=== PATIENT | female | born 1980 | race Caucasian/White ===

== ENCOUNTER 2017-05-17 18:44 | Emergency (ER) | payer SELFPAY ==
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
== END 2017-05-17 19:53 | disposition home or self-care (01) ==
LOC: MW.ED 18:44
DX: M62.830 Muscle spasm of back (principal); E20.9 Hypoparathyroidism, unspecified; Z79.899 Other long term (current) drug therapy
CPT/HCPCS: 99283

== ENCOUNTER 2018-04-22 16:59 | Emergency (ER) | payer OTHER ==
--- NOTE | 2018-04-22 17:53 | EDM.PDOC ---
ED HPI GENERAL MEDICAL PROBLEM - General Chief Complaint: ENT Problem Stated Complaint: POSSIBLE THRUSH/RASH Time Seen by Provider: 04/22/18 17:49 Source of Information: Reports: Patient History Limitations: Reports: No Limitations - History of Present Illness INITIAL COMMENTS - FREE TEXT/NARRATIVE: HISTORY AND PHYSICAL: History of present illness: Patient is a 29-year-old female here with complaint of yeast infection. She states she has had white vaginal discharge and itching and treated herself with [id number] oral medication. She states that this has not improved and now she thinks she has a yeast infection in her mouth as well. Her tongue is yellow and painful. She is also complaining of a rash on her left upper arm that started yesterday. She states it is itchy, not painful. She did recently receive a tattoo on the arm and use some goats milk cream on it which has never used recently. She denies fevers, chills, cough, congestion, nausea, vomiting, diarrhea. Review of systems: As per history of present illness and below otherwise all systems reviewed and negative. Past medical history: As per history of present illness and as reviewed below otherwise noncontributory. Surgical history: As per history of present illness and as reviewed below otherwise noncontributory. Social history: No reported history of drug or alcohol abuse. Family history: As per history of present illness and as reviewed below otherwise noncontributory. Physical exam: General: Patient sitting comfortably in no acute distress and nontoxic appearing HEENT: Tongue is with a whitish/yellow coating. Tonsils and soft palate are erythematous with some exudate noted. Atraumatic, normocephalic, pupils reactive , negative for conjunctival pallor or scleral icterus, mucous membranes moist, throat clear, neck supple, nontender, trachea midline. No meningeal signs. Lungs: Clear to auscultation, breath sounds equal bilaterally, chest nontender. Heart: S1S2, regular, negative for clicks, rubs, or overt murmur. Abdomen: Soft, nondistended, nontender. Negative for masses or hepatosplenomegaly. Negative for costovertebral tenderness. Pelvis: Stable nontender. Genitourinary: Deferred. Rectal: Deferred. Skin: There are pink papules on the left upper extremity surrounding her recent tattoo. Tattoo itself appears to be healing well without any diffuse erythema, warmth, or tenderness. Extremities: Atraumatic, negative for cords or calf pain. Neurovascular unremarkable. Neuro: Awake, alert, oriented. Cranial nerves II through XII unremarkable. Cerebellum unremarkable. Motor and sensory unremarkable throughout. Exam nonfocal. Notes: Diagnostics: Rapid strep Therapeutics: None Prescriptions: Diflucan Impression: Vaginal candidiasis, oral candidiasis Plan: 1. Take medication as instructed. 2. Follow-up with primary care provider 3. Return to ED as needed as discussed Definitive disposition and diagnosis as appropriate pending reevaluation and review of above. Oral/Mouth Pain Score (Numeric/FACES): 6 - Related Data Allergies Allergy/AdvReac Type Severity Reaction Status Date / Time No Known Allergies Allergy Verified 01/30/18 15:15 Home Meds: Home Meds Levothyroxine 25 mcg PO DAILY 05/17/17 [History] Thyroid [[place] Thyroid] 15 mg PO DAILY 05/17/17 [History] Fluconazole [Diflucan] 150 mg PO ONETIME #2 tab 04/22/18 [Rx] Past Medical History HEENT History: Reports: None Cardiovascular History: Reports: None Respiratory History: Reports: None Genitourinary History: Reports: None Musculoskeletal History: Reports: None Neurological History: Reports: None Psychiatric History: Reports: None Endocrine/Metabolic History: Reports: Hypoparathyroidism Hematologic History: Reports: None Immunologic History: Reports: None Oncologic (Cancer) History: Reports: None Dermatologic History: Reports: None - Infectious Disease History Infectious Disease History: Reports: Chicken Pox - Past Surgical History Head Surgeries/Procedures: Reports: None GI Surgical History: Reports: Cholecystectomy Social & Family History - Family History Family Medical History: Noncontributory - Tobacco Use Smoking Status *Q: Current Every Day Smoker Years of Tobacco use: 20 Packs/Tins Daily: 1 - Caffeine Use Caffeine Use: Reports: Coffee - Recreational Drug Use Recreational Drug Use: No ED ROS ENT - Review of Systems Review Of Systems: ROS reveals no pertinent complaints other than HPI. ED EXAM, ENT - Physical Exam Exam: See Below (see dictation) Course - Vital Signs Last Recorded V/S: Last Vital Signs Temp 97.0 F 04/22/18 17:29 Pulse 90 04/22/18 17:29 Resp 18 04/22/18 17:29 BP 115/74 04/22/18 17:29 Pulse Ox 96 04/22/18 17:29 - Orders/Labs/Meds Orders: Active Orders 24 hr Category Date Time Status CULTURE STREP A CONFIRMATION [RM] Stat Lab 04/22/18 17:55 Results STREP SCRN A RAPID W CULT CONF [RM] Stat Lab 04/22/18 17:55 Results Labs: Laboratory Tests 04/22/18 Range/Units 18:19 Ronna species DNA POSITIVE H (NEGATIVE) Gardnerella DNA Probe NEGATIVE (NEGATIVE) Trichomonas DNA Probe NEGATIVE (NEGATIVE) Departure - Departure Time of Disposition: 19:22 Disposition: Home, Self-Care 01 Condition: Good Clinical Impression: Vaginal candidiasis, Oral candidiasis - Discharge Information Referrals: Skyler Montalvo MD [Primary Care Provider] - Forms: ED Department Discharge Additional Instructions: The following information is given to patients seen in the emergency department who are being discharged to home. This information is to outline your options for follow-up care. We provide all patients seen in our emergency department with a follow-up referral. The need for follow-up, as well as the timing and circumstances, are variable depending upon the specifics of your emergency department visit. If you don't have a primary care physician on staff, we will provide you with a referral. We always advise you to contact your personal physician following an emergency department visit to inform them of the circumstance of the visit and for follow-up with them and/or the need for any referrals to a consulting specialist. The emergency department will also refer you to a specialist when appropriate. This referral assures that you have the opportunity for follow-up care with a specialist. All of these measure are taken in an effort to provide you with optimal care, which includes your follow-up. Under all circumstances we always encourage you to contact your private physician who remains a resource for coordinating your care. When calling for follow-up care, please make the office aware that this follow-up is from your recent emergency room visit. If for any reason you are refused follow-up, please contact the [facility] Emergency Department at and asked to speak to the emergency department charge nurse. [address] [id number] 1. Take medication as instructed. 2. Follow-up with primary care provider 3. Return to ED as needed as discussed - My Orders Last 24 Hours: My Active Orders 04/22/18 17:55 CULTURE STREP A CONFIRMATION [RM] Stat STREP SCRN A RAPID W CULT CONF [] Stat - Assessment/Plan Last 24 Hours: My Active Orders 04/22/18 17:55 CULTURE STREP A CONFIRMATION [RM] Stat STREP SCRN A RAPID W CULT CONF [] Stat
== END 2018-04-22 19:30 | disposition home or self-care (01) ==
LOC: MW.ED 16:59
DX: B37.3 Candidiasis of vulva and vagina (principal); B37.0 Candidal stomatitis; F17.210 Nicotine dependence, cigarettes, uncomplicated; Z79.899 Other long term (current) drug therapy; Z90.49 Acquired absence of other specified parts of digestive tract
CPT/HCPCS: 87081; 87480; 87510; 87660; 87880-QW; 99283

== ENCOUNTER 2018-06-13 16:25 | Emergency (ER) | payer OTHER ==
--- NOTE | 2018-06-13 17:11 | EDM.PDOC ---
ED HPI GENERAL MEDICAL PROBLEM - General Chief Complaint: Eye Problems Stated Complaint: BLURRY VISION Time Seen by Provider: 06/13/18 17:01 - History of Present Illness INITIAL COMMENTS - FREE TEXT/NARRATIVE: HISTORY AND PHYSICAL: History of present illness: Patient's a 37-year-old white female presents with a concern of vision changes she was recently diagnosed with diabetes and is on metformin. She denies pain denies trauma on arrival here visual acuities 20/70 20/70 20/70 that's OD OS both eyes respectively Review of systems: As per history of present illness and below otherwise all systems reviewed and negative. Past medical history: As per history of present illness and as reviewed below otherwise noncontributory. Surgical history: As per history of present illness and as reviewed below otherwise noncontributory. Social history: No reported history of drug or alcohol abuse. Family history: As per history of present illness and as reviewed below otherwise noncontributory. Physical exam: HEENT: Atraumatic, normocephalic, pupils reactive, negative for conjunctival pallor or scleral icterus, mucous membranes moist, throat clear, neck supple, nontender, trachea midline. Lungs: Clear to auscultation, breath sounds equal bilaterally, chest nontender. Heart: S1S2, regular, negative for clicks, rubs, or JVD. Abdomen: Soft, nondistended, nontender. Negative for masses or hepatosplenomegaly. Negative for costovertebral tenderness. Pelvis: Stable nontender. Genitourinary: Deferred. Rectal: Deferred. Extremities: Atraumatic, negative for cords or calf pain. Neurovascular unremarkable. Neuro: Awake, alert, oriented. Cranial nerves II through XII unremarkable. Cerebellum unremarkable. Motor and sensory unremarkable throughout. Exam nonfocal. Diagnostics: Accu-Chek visual acuity Therapeutics: None Impression: #1 medical screening exam #2 history of recently diagnosed diabetes #3 visual acuity change Definitive disposition and diagnosis as appropriate pending reevaluation and review of above. - Related Data Allergies Allergy/AdvReac Type Severity Reaction Status Date / Time No Known Allergies Allergy Verified 01/30/18 15:15 Home Meds: Home Meds Levothyroxine 25 mcg PO DAILY 05/17/17 [History] Thyroid [[place] Thyroid] 15 mg PO DAILY 05/17/17 [History] Fluconazole [Diflucan] 150 mg PO ONETIME #2 tab 04/22/18 [Rx] Past Medical History HEENT History: Reports: None Cardiovascular History: Reports: None Respiratory History: Reports: None Genitourinary History: Reports: None Musculoskeletal History: Reports: None Neurological History: Reports: None Psychiatric History: Reports: None Endocrine/Metabolic History: Reports: Hypoparathyroidism Hematologic History: Reports: None Immunologic History: Reports: None Oncologic (Cancer) History: Reports: None Dermatologic History: Reports: None - Infectious Disease History Infectious Disease History: Reports: Chicken Pox - Past Surgical History Head Surgeries/Procedures: Reports: None GI Surgical History: Reports: Cholecystectomy Social & Family History - Family History Family Medical History: Noncontributory - Caffeine Use Caffeine Use: Reports: Coffee ED ROS GENERAL - Review of Systems Review Of Systems: ROS reveals no pertinent complaints other than HPI. ED EXAM GENERAL W FULL EYE - Physical Exam Exam: See Below (See dictation) Course - Vital Signs Last Recorded V/S: Last Vital Signs Temp 36.5 C 06/13/18 17:05 Pulse 89 06/13/18 17:05 Resp 16 06/13/18 17:05 BP 112/69 06/13/18 17:05 Pulse Ox 98 06/13/18 17:05 Departure - Departure Time of Disposition: 17:10 Disposition: Home, Self-Care 01 Condition: Good Clinical Impression: Encounter for medical screening examination, History of diabetes mellitus - Discharge Information Referrals: Skyler Montalvo MD [Primary Care Provider] - Additional Instructions: The following information is given to patients seen in the emergency department who are being discharged to home. This information is to outline your options for follow-up care. We provide all patients seen in our emergency department with a follow-up referral. The need for follow-up, as well as the timing and circumstances, are variable depending upon the specifics of your emergency department visit. If you don't have a primary care physician on staff, we will provide you with a referral. We always advise you to contact your personal physician following an emergency department visit to inform them of the circumstance of the visit and for follow-up with them and/or the need for any referrals to a consulting specialist. The emergency department will also refer you to a specialist when appropriate. This referral assures that you have the opportunity for followup care with a specialist. All of these measure are taken in an effort to provide you with optimal care, which includes your followup. Under all circumstances we always encourage you to contact your private physician who remains a resource for coordinating your care. When calling for followup care, please make the office aware that this follow-up is from your recent emergency room visit. If for any reason you are refused follow-up, please contact the [facility] emergency department at and asked to speak to the emergency department charge nurse. Continue current medications keep scheduled appointment with ophthalmology and private medical doctor as scheduled this week and return as needed as discussed
== END 2018-06-13 17:52 | disposition home or self-care (01) ==
LOC: MW.ED 16:25
DX: H53.8 Other visual disturbances (principal); E11.9 Type 2 diabetes mellitus without complications; E20.9 Hypoparathyroidism, unspecified; Z79.899 Other long term (current) drug therapy
CPT/HCPCS: 82962; 99282; 99284

== ENCOUNTER 2019-05-24 10:25 | Emergency (ER) | payer BC, OTHER ==
[2019-05-24] MEDS ORDERED: Dexamethasone 10 MG/ML SDV IM ONE (11:04)
[2019-05-24] MEDS ORDERED: diphenhydrAMINE 50 MG/ML SDV IM ONE (11:05)
--- NOTE | 2019-05-24 11:10 | EDM.PDOC ---
ED HPI GENERAL MEDICAL PROBLEM - General Chief Complaint: Skin Complaint Stated Complaint: RASH Time Seen by Provider: 05/24/19 10:45 Source of Information: Reports: Patient History Limitations: Reports: No Limitations - History of Present Illness INITIAL COMMENTS - FREE TEXT/NARRATIVE: Pt with no pmh of allergies presents with itching hives since friday. They started on her right thigh and now have moved to her upper arms and back of her neck. Pt has tried benadryl with some success. Pt denies any new exposures. Pt denies, sob, wheezing, throat swelling or any other symptoms. Generalized Pain Score (Numeric/FACES): 8 - Related Data Allergies Allergy/AdvReac Type Severity Reaction Status Date / Time No Known Allergies Allergy Verified 05/24/19 10:44 Home Meds: Home Meds Levothyroxine 50 mcg PO DAILY 05/17/17 [History] Lisinopril 20 mg PO DAILY 06/13/18 [History] Empagliflozin/Metformin HCl [Synjardy 5-1,000 mg Tablet] 1 each PO DAILY [History] Thyroid,Pork [[place] Thyroid] 90 mg PO DAILY 05/24/19 [History] Past Medical History HEENT History: Reports: None Cardiovascular History: Reports: None Respiratory History: Reports: None Genitourinary History: Reports: None Musculoskeletal History: Reports: None Neurological History: Reports: None Psychiatric History: Reports: None Endocrine/Metabolic History: Reports: Hypoparathyroidism Hematologic History: Reports: None Immunologic History: Reports: None Oncologic (Cancer) History: Reports: None Dermatologic History: Reports: None - Infectious Disease History Infectious Disease History: Reports: Chicken Pox, MRSA - Past Surgical History Head Surgeries/Procedures: Reports: None GI Surgical History: Reports: Cholecystectomy Social & Family History - Family History Family Medical History: Noncontributory - Tobacco Use Smoking Status *Q: Former Smoker Used Tobacco, but Quit: Yes Month/Year Tobacco Last Used: 2019 - Caffeine Use Caffeine Use: Reports: Coffee, Tea - Recreational Drug Use Recreational Drug Use: No ED ROS GENERAL - Review of Systems Review Of Systems: See Below Constitutional: Reports: No Symptoms Respiratory: Reports: No Symptoms Cardiovascular: Reports: No Symptoms GI/Abdominal: Reports: No Symptoms Skin: Reports: Rash, Urticaria ED EXAM, SKIN/RASH Exam: See Below Exam Limited By: No Limitations General Appearance: Alert, WD/WN, No Apparent Distress Respiratory/Chest: No Respiratory Distress, Lungs Clear, Normal Breath Sounds Cardiovascular: Regular Rate, Rhythm, No Murmur GI/Abdominal: No Distention Skin: Rash (Urticaria on right upper arm and on the back of right neck) Course - Vital Signs Last Recorded V/S: Last Vital Signs Temp 97.2 F 05/24/19 10:46 Pulse 84 05/24/19 10:46 Resp 18 05/24/19 10:46 BP 114/64 05/24/19 10:46 Pulse Ox 96 05/24/19 10:46 - Orders/Labs/Meds Meds: Medications Discontinued Medications Generic Name Dose Route Start Last Admin Trade Name Freq PRN Reason Stop Dose Admin Dexamethasone 12 mg 05/24/19 11:04 05/24/19 11:19 Dexamethasone IM 05/24/19 11:05 12 mg ONETIME ONE Administration Diphenhydramine HCl 25 mg 05/24/19 11:05 05/24/19 11:19 Benadryl IM 05/24/19 11:06 25 mg ONETIME ONE Administration - Re-Assessments/Exams Free Text/Narrative Re-Assessment/Exam: VS stable and PE as above. Pt given IM benadryl and decadron with improvement of her symptoms. Pt comfortable with discharge. Strict return precautions discussed should symptoms worsen or any concerns arise. Departure - Departure Time of Disposition: 11:37 Disposition: Home, Self-Care 01 Condition: Good Clinical Impression: Urticaria - Discharge Information *PRESCRIPTION DRUG MONITORING PROGRAM REVIEWED*: Not Applicable *COPY OF PRESCRIPTION DRUG MONITORING REPORT IN PATIENT JEFFY: Not Applicable Instructions: Hives, [id number], Rash, [id number] Referrals: Skyler Montalvo MD [Primary Care Provider] - Forms: ED Department Discharge Additional Instructions: My general discharge The following information is given to patients seen in the emergency department who are being discharged to home. This information is to outline your options for follow-up care. We provide all patients seen in our emergency department with a follow-up referral. The need for follow-up, as well as the timing and circumstances, are variable depending upon the specifics of your emergency department visit. If you don't have a primary care physician on staff, we will provide you with a referral. We always advise you to contact your personal physician following an emergency department visit to inform them of the circumstance of the visit and for follow-up with them and/or the need for any referrals to a consulting specialist. The emergency department will also refer you to a specialist when appropriate. This referral assures that you have the opportunity for follow-up care with a specialist. All of these measure are taken in an effort to provide you with optimal care, which includes your follow-up. Under all circumstances we always encourage you to contact your private physician who remains a resource for coordinating your care. When calling for follow-up care, please make the office aware that this follow-up is from your recent emergency room visit. If for any reason you are refused follow-up, please contact the [facility] Emergency Department at and asked to speak to the emergency department charge nurse. Sepsis Event Note - Evaluation Sepsis Screening Result: No Definite Risk - Focused Exam Vital Signs: Vital Signs Temp Pulse Resp BP Pulse Ox 05/24/19 10:46 97.2 F 84 18 114/64 96 Date Exam was Performed: 05/24/19 Time Exam was Performed: 11:43
== END 2019-05-24 11:50 | disposition home or self-care (01) ==
LOC: MW.ED 10:25
DX: L50.9 Urticaria, unspecified (principal); Z87.891 Personal history of nicotine dependence; E20.9 Hypoparathyroidism, unspecified; Z79.899 Other long term (current) drug therapy
CPT/HCPCS: 96372; 99282; J1100; J1200